=== PATIENT | female | born 1990 | race African-American/Black ===

== ENCOUNTER → 2025-07-08 16:44 | Outpatient (CLI) | payer OTHER, SELFPAY ==
--- NOTE | 2025-07-08 16:47 | DI.MRI.S_ITS ---
PROCEDURE: MR LUMBAR SPINE WO CON INDICATIONS: on going back pain TECHNIQUE: Noncontrast sagittal T1 spin echo and T2 fast echo, sagittal STIR, and T2 fast spin echo through the lumbar spine. In cases with scoliosis, additional coronal T2 fast spin echo may be performed. COMPARISON: None. FINDINGS: Image quality: Excellent. Alignment and Curvature: There is normal bony alignment. Bone Marrow: Marrow is of normal overall signal. No acute vertebral body compression fractures. Spinal Cord: Conus medullaris terminates at the L1 level. Visualized cord demonstrates normal signal and size. Paraspinous Soft Tissues: No paravertebral masses. T12-L1: Normal appearance. L1-L2: Normal appearance. L2-L3: Normal appearance. L3-L4: Normal appearance. L4-L5: Normal appearance. L5-S1: Normal appearance. IMPRESSION: Normal lumbar spine MRI. No significant spinal canal or neural foraminal stenosis. Dictated by: Jacob Olguin M.D. on 07/09/2025 at 8:34 Approved by: Jacob Olguin M.D. on 07/09/2025 at 8:36
== END ==
LOC: MRI 16:45
PROVIDERS: Referring Provider Physician Assistant; Visit Provider Physician Assistant
DX: M54.50 Low back pain, unspecified (principal); R29.2 Abnormal reflex; M54.6 Pain in thoracic spine; M62.830 Muscle spasm of back; M41.9 Scoliosis, unspecified
CPT/HCPCS: 72148

== ENCOUNTER → 2025-09-17 14:38 | Outpatient (CLI) | payer OTHER, SELFPAY | LOC: PHYS 14:40 | PROVIDERS: Referring Provider Orthopaedic Surgery; Visit Provider Orthopaedic Surgery | DX: R20.0 Anesthesia of skin (principal); R20.2 Paresthesia of skin | CPT/HCPCS: 95886; 95910 ==